=== PATIENT | male | born 1995 | race Two or more races ===

== ENCOUNTER 2020-07-22 15:28 | Emergency (ER) | payer BC ==
[~2020-07-22] VITALS: Ht 182.9 cm; Wt 78.5 kg
[2020-07-22 15:31] VITALS: Ht 182.9 cm; Wt 78.5 kg
[2020-07-22 17:17] VITALS: BP 146/77
== END 2020-07-22 17:17 | disposition home or self-care (01) ==
LOC: EDSEX 15:28 → ED 15:28
DX: S61.411A Laceration without foreign body of right hand, initial encounter (principal); R03.0 Elevated blood-pressure reading, without diagnosis of hypertension; X58.XXXA Exposure to other specified factors, initial encounter; Y93.89 Activity, other specified; Y92.89 Other specified places as the place of occurrence of the external cause; Y99.8 Other external cause status
CPT/HCPCS: 90715; J2001